=== PATIENT | female | born 1970 | race African-American/Black ===

== ENCOUNTER 2017-03-25 12:36 | Inpatient (IN) | payer OTHER ==
[2017-03-25 13:26] VITALS: BMI 34.9
--- NOTE | 2017-03-25 15:02 | HP ---
CIWA Score - CIWA Score Nausea/Vomitin-No Nausea/No Vomiting Muscle Tremors: 4-Moderate,w/Arms Extend Anxiety: 3 Agitation: 2 Paroxysmal Sweats: 3 Orientation: 0-Oriented Tacttile Disturbances: 2-Mild Itch/Numbness/Burn Auditory Disturbances: 0-None Visual Disturbances: 3-Moderate Sensitivity Headache: 0-None Present CIWA-Ar Total Score: 17 Admission ROS S - HPI Chief Complaint: "I want help. I have to own up to what I am doing." Patient is here to Detox from Alcohol. Allergies/Adverse Reactions: Allergies Allergy/AdvReac Type Severity Reaction Status Date / Time No Known Allergies Allergy Verified 03/25/17 15:01 History of Present Illness: Pt. is a 46 YO female here to Detox from Alcohol. This is patient's first Detox admission to any facility. Exam Limitations: No Limitations - Ebola screening Have you traveled outside of the country in the last 21 days: No Have you had contact with anyone from an Ebola affected area: No Have you been sick,other than usual withdrawal symptoms: No Do you have a fever: No - Review of Systems Constitutional: Chills, Diaphoresis, Fever, Loss of Appetite, Malaise, Changes in sleep EENT: reports: Blurred Vision Respiratory: reports: No Symptoms reported Cardiac: reports: No Symptoms Reported GI: reports: Poor Appetite : reports: No Symptoms Reported Musculoskeletal: reports: No Symptoms Reported Integumentary: reports: No Symptoms Reported Neuro: reports: Numbness (Bilateral Hands.), Tremors (Bilateral Hands.) Endocrine: reports: No Symptoms Reported Hematology: reports: Anemia (Iron-Deficiency type.), Easy Bleeding (Patient was evaluted at [facility] ([facility] approx. 1 week ago for vaginal bleeding. Pt. received blood transfusion at Hospital. Vaginal bleeding stopped completely approx. 4 days ago. Pt. reports history of Uterine Fibroids for which she has had two previous surgeries (02/2017, 03/2017). Pt. reportst that she was instructed by Surgeon to follow-up with Transport Assistant medical provider for further evaluation as soon as possible. Patient denies any current uterine bleeding / spotting.) Psychiatric: reports: Judgement Intact, Mood/Affect Appropiate, Orientated x3, Anxious, Depressed (No previous Treatment.) Other Systems: Reviewed and Negative Patient History - Patient Medical History Hx Anemia: Yes (Iron-Deficiency type, has taken Iron supplement in past.) Hx Asthma: Yes (Uses Albuterol Inhaler PRN.) Hx Chronic Obstructive Pulmonary Disease (COPD): No Hx Cancer: No Hx Cardiac Disorders: No Hx Congestive Heart Failure: No Hx Hypertension: Yes (On med.) Hx Hypercholesterolemia: No Hx Pacemaker: No HX Cerebrovascular Accident: No Hx Seizures: No Hx Dementia: No Hx Diabetes: No Hx Gastrointestinal Disorders: No Hx Liver Disease: No Hx Genitourinary Disorders: No Hx Sexually Transmitted Disorders: No Hx Renal Disease (ESRD): No Hx Thyroid Disease: No Hx Human Immunodeficiency Virus (HIV): No (Last Tested: 05/2016: NEGATIVE.) Hx Hepatitis C: No (Last Tested: 12/2016: NEGATIVE.) Hx Depression: Yes (No previous treatment.) Hx Suicide Attempt: No (PATIENT DENIES CURRENT SI / HI.) Hx Bipolar Disorder: No Hx Schizophrenia: No Other Medical History: History of Uterine Fibroids. - Patient Surgical History Past Surgical History: Yes Hx Neurologic Surgery: No Hx Cataract Extraction: No Hx Cardiac Surgery: No Hx Lung Surgery: No Hx Breast Surgery: No Hx Breast Biopsy: No Hx Abdominal Surgery: Yes (Gastric Bypass (2013).) Hx Appendectomy: No Hx Cholecystectomy: No Hx Genitourinary Surgery: No Hx Section: No Hx Orthopedic Surgery: No Hx Hysterectomy: No Other Surgical History: Uterine Fibroid Removal X 2 (02/2017, 03/2017). Anesthesia Reaction: No - PPD History Previous Implant?: Yes Documented Results: Negative w/o proof Implanted On Prior [facility] Admission?: No PPD to be Administered?: Yes - Reproductive History Patient is a Female of Child Bearing Age (11 -55 yrs old): Yes LMP comment: Difficult to determine due to bleeding caused by Uterine fibroids. Patient : No - Smoking Cessation Smoking history: Never smoked Have you smoked in the past 12 months: No Cigars Per Day: 0 Hx Chewing Tobacco Use: No Initiated information on smoking cessation: No - Substance & Tx. History Hx Alcohol Use: Yes Hx Substance Use: Yes Substance Use Type: Alcohol Hx Substance Use Treatment: No (This is fiurst Detox admission for patient.) - Substances Abused Alcohol Route: Oral Frequency: Daily Amount used: 1 Quart Vodka. Age of first use: 31 Date of Last Use: 03/25/17 Family Disease History - Family Disease History Family Disease History: Diabetes: Father (.) Admission Physical Exam [facility] - Vital Signs Vital Signs: Vital Signs - 24 hr 03/25/17 13:17 Temperature 99.0 F Pulse Rate 114 H Respiratory 20 Rate Blood Pressure 153/98 - Physical General Appearance: Yes: No Apparent Distress, Nourished, Appropriately Dressed , Tremorous HEENTM: Yes: Hearing grossly Normal, Normocephalic, Normal Voice, MAYURI, Pharynx Normal Respiratory: Yes: Chest Non-Tender, Lungs Clear, No Respiratory Distress, No Accessory Muscle Use Neck: Yes: No masses,lesions,Nodules, Supple, Trachea in good position Breast: Yes: Breast Exam Deferred Cardiology: Yes: Regular Rhythm, Regular Rate, S1, S2, Tachycardia Abdominal: Yes: Normal Bowel Sounds, Non Tender, Soft, Protuberent Genitourinary: Yes: Within Normal Limits Back: Yes: Normal Inspection Musculoskeletal: Yes: full range of Motion, Gait Steady Extremities: Yes: Normal Range of Motion, Non-Tender, Tremors Neurological: Yes: Fully Oriented, Alert, Normal Mood/Affect, Normal Response Integumentary: Yes: Normal Color, Dry, Warm Lymphatic: Yes: Within Normal Limits - Diagnostic (1) Alcohol dependence with uncomplicated withdrawal Current Visit: Yes Status: Acute (2) Hypertension Current Visit: Yes Status: Acute Qualifiers: Hypertension type: essential hypertension Qualified Code(s): I10 - Essential (primary) hypertension (3) History of uterine fibroid Current Visit: Yes Status: Chronic (4) Asthma Current Visit: Yes Status: Chronic Qualifiers: Asthma severity: mild Asthma persistence: intermittent Asthma complication type: uncomplicated Qualified Code(s): J45.20 - Mild intermittent asthma, uncomplicated (5) History of gynecologic surgery Current Visit: Yes Status: Chronic Comment: Uterine Fibroid Removal X 2 (2016, 03/2017). (6) History of iron deficiency anemia Current Visit: Yes Status: Chronic Cleared for Admission [facility] - Detox or Rehab [facility] Level of Care: Medically Managed Detox Regimen/Protocol: Librium [facility] Breath Alcohol Content Breath Alcohol Content: 0.303 Urine Pregancy Test - Result Urine Test Results: Negative- NO Line Present Urine Drug Screen - Results Drug Screen Negative: Yes
[2017-03-25] MEDS ORDERED: hydrOXYzine PAMOATE 50 MG CAPSULE (FP) PO PRN (15:52)
[2017-03-25] MEDS ORDERED: guaiFENesin/D-METHORPHAN HB 10 ML UNIT-DOSE CUPS PO PRN (15:52)
[2017-03-25] MEDS ORDERED: P-EPHED 60MG/TRIPROLIDI 2.5MG TABLET PO PRN (15:52)
[2017-03-25] MEDS ORDERED: MAG HYDROX/AL HYDROX/SIMETH 30 ML UNIT-DOSE CUP PO PRN (15:52)
[2017-03-25] MEDS ORDERED: IBUPROFEN 400 MG TABLET (FP) PO PRN (15:52)
[2017-03-25] MEDS ORDERED: ACETAMINOPHEN 325 MG TABLET (FP) PO PRN (15:52)
[2017-03-25] MEDS ORDERED: chlordiazePOXIDE HCL 25 MG CAPSULE PO ONE (15:52)
[2017-03-25] MEDS ORDERED: MENTHOL/PHENOL 1 EACH UD MM PRN (15:52)
[2017-03-25] MEDS ORDERED: MAGNESIUM CITRATE 300 ML BOTTLE PO PRN (15:52)
[2017-03-25] MEDS ORDERED: LOPERAMIDE HCL 2 MG CAPSULE PO PRN (15:52)
[2017-03-25] MEDS ORDERED: MAGNESIUM HYDROX 2400MG/30ML ORAL SUSPENSION 30 ML CUP PO PRN (15:52)
[2017-03-25] MEDS ORDERED: ALBUTEROL SO4 18 GM HFA INHALER IH PRN (15:58)
[2017-03-25] MEDS: chlordiazePOXIDE HCL 25 MG CAPSULE PO SCH ×2 (17:52→22:53)
[2017-03-25] MEDS: LOSARTAN 50MG/HCTZ 12.5MG 1 TAB (FP) PO SCH (19:09)
[2017-03-25 22:49] LABS: URINE APPEARANCE CLOUDY; URINE BILIRUBIN NEGATIVE (NEGATIVE); URINE BLOOD 1+ (NEGATIVE); URINE COLOR AMBER; URINE GLUCOSE (UA) NEGATIVE (NEGATIVE); URINE KETONE NEGATIVE (NEGATIVE); URINE NITRITE NEGATIVE (NEGATIVE); URINE PROTEIN 2+ (NEGATIVE); URINE UROBILINOGEN NEGATIVE mg/dL (0.2-1.0)
[2017-03-25 22:51] LABS: URINE BACTERIA FEW /hpf (NONE SEEN); URINE HYALINE CAST 9 /lpf; URINE MUCUS MODERATE; URINE RBC 6; URINE WBC 72; YEAST RARE
[2017-03-25] MEDS: THIAMINE HCL 100 MG TABLET (FP) PO SCH (22:52)
[2017-03-26] MEDS: chlordiazePOXIDE HCL 25 MG CAPSULE PO SCH ×4 (06:30→22:37)
--- NOTE | 2017-03-26 07:44 | CONSULT ---
[facility] Psychiatric Consult - Data Date of interview: 03/26/17 Admission source: [facility] Identifying data: This is 46 years old female with no psychiatric hospitalization history intoxicated with : A;cphp; Substance Abuse History: - Smoking Cessation. Smoking history: Never smoked. Have you smoked in the past 12 months: No. Cigars Per Day: 0. Hx Chewing Tobacco Use: No. Initiated information on smoking cessation: No. - Substance & Tx. History. Hx Alcohol Use: Yes. Hx Substance Use: Yes. Substance Use Type : Alcohol. Hx Substance Use Treatment: No (This is fiurst Detox admission for patient.). - Substances Abused. Alcohol. Route: Oral. Frequency: Daily. Amount used: 1 Quart Vodka. Age of first use: 31. Date of Last Use: 03/25/17 Medical History: HTN, Asthma, S/P fibroid surdery history, Anemia history, Psychiatric History: Reports history of depression, reports no mediations taking prior to admission, denies suicidal history Physical/Sexual Abuse/Trauma History: Denies Additional Comment: Observation\. Detox Protocol Unit Care Mental Status Exam - Mental Status Exam Alert and Oriented to: Person Cognitive Function: Fair Patient Appearance: Unkempt Mood: Sad Affect: Flat Patient Behavior: Sedated Speech Pattern: Delayed Voice Loudness: Mildly Soft/Quiet Thought Process: Circumstantial Thought Disorder: Being Controlled Hallucinations: Denies Suicidal Ideation: Denies Homicidal Ideation: Denies Insight/Judgement: Fair Sleep: Difficulty falling asleep Appetite: Fair Muscle strength/Tone: Mild Hypotonicity Gait/Station: Shuffling Additional Comments: Observation\. 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 Detox Protocol Unit Care
[2017-03-26 10:44] LABS: URINE LEUK ESTERASE TRACE (NEGATIVE)
[2017-03-26] MEDS: PRENATAL VITAMINS W/ FOLIC ACID TABLET (FP) PO SCH (10:46)
[2017-03-26] MEDS: LOSARTAN 50MG/HCTZ 12.5MG 1 TAB (FP) PO SCH (10:46)
--- NOTE | 2017-03-26 11:39 | EKG ---
Test Reason : Blood Pressure : / mmHG Vent. Rate : 105 BPM Atrial Rate : 105 BPM P-R Int : 150 ms QRS Dur : 086 ms QT Int : 362 ms P-R-T Axes : 049 -10 079 degrees QTc Int : 478 ms SINUS TACHYCARDIA T WAVE ABNORMALITY, CONSIDER LATERAL ISCHEMIA ABNORMAL ECG NO PREVIOUS ECGS AVAILABLE Confirmed by SHERIN CUADRA MD ([id number]) on 03/26/2017 11:39:02 AM Referred By: Confirmed By:SHERIN CUADRA MD
--- NOTE | 2017-03-26 11:57 | PN ---
S CIWA - CIWA Score Nausea/Vomitin-No Nausea/No Vomiting Muscle Tremors: 4-Moderate,w/Arms Extend Anxiety: 3 Agitation: 3 Paroxysmal Sweats: 3 Orientation: 0-Oriented Tacttile Disturbances: 0-None Auditory Disturbances: 0-None Visual Disturbances: 0-None Headache: 0-None Present CIWA-Ar Total Score: 13 S Progress Note (SOAP) Subjective: sweats agitation interrupted sleep shakes Objective: 03/26/17 11:56 Vital Signs Temperature 98.2 F 03/26/17 10:10 Pulse Rate 105 H 03/26/17 10:10 Respiratory Rate 16 03/26/17 10:10 Blood Pressure 140/90 03/26/17 10:10 O2 Sat by Pulse Oximetry (%) Laboratory Tests 03/25/17 21:30 Urine Color Sudha Urine Appearance Cloudy Urine pH 5.0 Ur Specific [place] 1.023 Urine Protein 2+ H Urine Glucose (UA) Negative Urine Ketones Negative Urine Blood 1+ H Urine Nitrite Negative Urine Bilirubin Negative Urine Urobilinogen Negative Ur Leukocyte Esterase Trace H Urine WBC (Auto) 72 Urine RBC (Auto) 6 Urine RBC No Result Required. Ur Epithelial Cells Rare Urine Bacteria Few Hyaline Casts 9 Urine Mucus Moderate Urine Yeast Rare rest of labs pending repeat u/a aaox3 ambulating no acute distress Assessment: 03/26/17 11:57 withdrawal sx Plan: continue detox increase fluids
--- NOTE | 2017-03-26 12:14 | EKG ---
Test Reason : Blood Pressure : / mmHG Vent. Rate : 102 BPM Atrial Rate : 102 BPM P-R Int : 146 ms QRS Dur : 090 ms QT Int : 372 ms P-R-T Axes : 052 -13 119 degrees QTc Int : 484 ms SINUS TACHYCARDIA NONSPECIFIC T WAVE ABNORMALITY ABNORMAL ECG WHEN COMPARED WITH ECG OF 25-MAR-2017 17:28, NO SIGNIFICANT CHANGE WAS FOUND Confirmed by SHERIN CUADRA MD ([id number]) on 03/26/2017 12:13:58 PM Referred By: Confirmed By:SHERIN CUADRA MD
[2017-03-26 13:22] LABS: MCH 23.3 pg (25.7-33.7); MCHC 32.1 g/dl (32.0-36.0); MEAN CELL VOLUME 72.6 fl (80-96); MEAN PLT VOLUME 8.8 fl (7.5-11.1); PLATELET COUNT 326 K/MM3 (134-434); RDW 31.3 % (11.6-15.6); WHITE BLOOD COUNT 4.5 K/mm3 (4.0-10.0)
[2017-03-26 13:39] LABS: ALBUMIN 3.7 g/dl (3.4-5.0); ANION GAP 9 (8-16); CALCIUM 8.7 mg/dL (8.5-10.1); CO2 31 mmol/L (21-32); CREATININE 0.8 mg/dL (0.55-1.02); GLUCOSE,RANDOM 72 mg/dL (74-106); SGOT/AST 18 U/L (15-37); SGPT/ALT 24 U/L (12-78)
[2017-03-26 13:40] LABS: ALK PHOS 72 U/L (45-117); BILIRUBIN,TOTAL 0.9 mg/dL (0.2-1.0); TOT PROT 7.7 g/dl (6.4-8.2)
[2017-03-26 14:01] LABS: SICKLE CELL SCREEN NEGATIVE (NEGATIVE)
[2017-03-26] MEDS: chlordiazePOXIDE HCL 25 MG CAPSULE PO PRN ×2 (15:38→20:15)
[2017-03-26] MEDS: cloNIDine HCL 0.1 MG TABLET PO PRN (20:15)
[2017-03-26] MEDS: THIAMINE HCL 100 MG TABLET (FP) PO SCH (22:37)
[2017-03-27] MEDS: chlordiazePOXIDE HCL 25 MG CAPSULE PO SCH ×2 (06:01→10:55)
[2017-03-27 09:07] LABS: HIV 1 & 2 AB NEGATIVE; HIV 1 AGp24 NEGATIVE
[2017-03-27] MEDS: LOSARTAN 50MG/HCTZ 12.5MG 1 TAB (FP) PO SCH (10:54)
[2017-03-27] MEDS: PRENATAL VITAMINS W/ FOLIC ACID TABLET (FP) PO SCH (10:54)
[2017-03-27] MEDS: cloNIDine HCL 0.1 MG TABLET PO PRN (10:56)
--- NOTE | 2017-03-27 12:36 | EKG ---
Test Reason : Blood Pressure : / mmHG Vent. Rate : 095 BPM Atrial Rate : 095 BPM P-R Int : 146 ms QRS Dur : 090 ms QT Int : 376 ms P-R-T Axes : 060 -12 118 degrees QTc Int : 472 ms NORMAL SINUS RHYTHM T WAVE ABNORMALITY, CONSIDER ANTERIOR ISCHEMIA PROLONGED QT ABNORMAL ECG WHEN COMPARED WITH ECG OF 25-MAR-2017 22:57, NO SIGNIFICANT CHANGE WAS FOUND Confirmed by ANA JEFFERSON, OREN ([id number]) on 03/27/2017 12:36:15 PM Referred By: Confirmed By:OREN PEREZ MD
[2017-03-27 13:52] VITALS: BP 133/74; PULSE 100; TEMP 97.1
--- NOTE | 2017-03-27 13:52 | PN ---
S CIWA - CIWA Score Nausea/Vomitin Muscle Tremors: 3 Anxiety: 3 Agitation: 2 Paroxysmal Sweats: 1-Minimal Palms Moist Orientation: 0-Oriented Tacttile Disturbances: 1-Very Mild Itch/Numbness Auditory Disturbances: 1-Very Mild Visual Disturbances: 0-None Headache: 2-Mild CIWA-Ar Total Score: 16 BHS Progress Note (SOAP) Subjective: ALERT,IRRITABLE,ANXIOUS,INTERRUPTED SLEEP,TREMOR Objective: 03/27/17 13:51 Vital Signs Temperature 97.7 F 03/27/17 10:50 Pulse Rate 111 H 03/27/17 10:50 Respiratory Rate 18 03/27/17 10:50 Blood Pressure 139/94 03/27/17 10:50 O2 Sat by Pulse Oximetry (%) Laboratory Last Values WBC 4.5 K/mm3 (4.0-10.0) 03/26/17 09:50 RBC 4.58 M/mm3 (3.60-5.2) 03/26/17 09:50 Hgb 10.7 GM/dL (10.7-15.3) 03/26/17 09:50 Hct 33.2 % (32.4-45.2) 03/26/17 09:50 MCV 72.6 fl (80-96) L 03/26/17 09:50 MCH 23.3 pg (25.7-33.7) L 03/26/17 09:50 MCHC 32.1 g/dl (32.0-36.0) 03/26/17 09:50 RDW 31.3 % (11.6-15.6) H 03/26/17 09:50 Plt Count 326 K/MM3 (134-434) 03/26/17 09:50 MPV 8.8 fl (7.5-11.1) 03/26/17 09:50 Sickle Cell Screen Negative (NEGATIVE) 03/26/17 09:50 Sodium 139 mmol/L (136-145) 03/26/17 09:50 Potassium 3.6 mmol/L (3.5-5.1) 03/26/17 09:50 Chloride 99 mmol/L (98-107) 03/26/17 09:50 Carbon Dioxide 31 mmol/L (21-32) 03/26/17 09:50 Anion Gap 9 (8-16) 03/26/17 09:50 BUN 11 mg/dL (7-18) 03/26/17 09:50 Creatinine 0.8 mg/dL (0.55-1.02) 03/26/17 09:50 Creat Clearance w eGFR > 60 (>60) 03/26/17 09:50 Random Glucose 72 mg/dL (74-106) L 03/26/17 09:50 Calcium 8.7 mg/dL (8.5-10.1) 03/26/17 09:50 Total Bilirubin 0.9 mg/dL (0.2-1.0) 03/26/17 09:50 AST 18 U/L (15-37) 03/26/17 09:50 ALT 24 U/L (12-78) 03/26/17 09:50 Alkaline Phosphatase 72 U/L (45-117) 03/26/17 09:50 Total Protein 7.7 g/dl (6.4-8.2) 03/26/17 09:50 Albumin 3.7 g/dl (3.4-5.0) 03/26/17 09:50 Urine Color Sudha 03/25/17 21:30 Urine Appearance Cloudy 03/25/17 21:30 Urine pH 5.0 (5.0-8.0) 03/25/17 21:30 Ur Specific [place] 1.023 (1.001-1.035) 03/25/17 21:30 Urine Protein 2+ (NEGATIVE) H 03/25/17 21:30 Urine Glucose (UA) Negative (NEGATIVE) 03/25/17 21:30 Urine Ketones Negative (NEGATIVE) 03/25/17 21:30 Urine Blood 1+ (NEGATIVE) H 03/25/17 21:30 Urine Nitrite Negative (NEGATIVE) 03/25/17 21:30 Urine Bilirubin Negative (NEGATIVE) 03/25/17 21:30 Urine Urobilinogen Negative mg/dL (0.2-1.0) 03/25/17 21:30 Ur Leukocyte Esterase Trace (NEGATIVE) H 03/25/17 21:30 Urine WBC (Auto) 72 03/25/17 21:30 Urine RBC (Auto) 6 03/25/17 21:30 Urine RBC No Result Required. 03/25/17 21:30 Ur Epithelial Cells Rare /hpf (FEW) 03/25/17 21:30 Urine Bacteria Few /hpf (NONE SEEN) 03/25/17 21:30 Hyaline Casts 9 /lpf 03/25/17 21:30 Urine Mucus Moderate 03/25/17 21:30 Urine Yeast Rare 03/25/17 21:30 RPR Titer Nonreactive (NONREACTIVE) 03/26/17 09:50 HIV 1&2 Antibody Screen Negative 03/26/17 09:50 HIV P24 Antigen Negative 03/26/17 09:50 Assessment: 03/27/17 13:51 WITHDRAWAL SYMPTOM Plan: CONTINUE DETOX
[2017-03-27] MEDS ORDERED: FERROUS SO4 325 MG TABLET (FP) PO SCH (14:00)
[2017-03-27] MEDS ORDERED: chlordiazePOXIDE 5 MG CAPSULE PO SCH (17:00)
--- NOTE | 2017-03-27 19:20 | DS ---
[facility] Detox Discharge Summary Admission Date: 03/25/17 Discharge Date: 03/27/17 - History Present History: Alcohol Dependence Additional Comments: PATIENT REFUSES TO WAIT FACE TO FACE WITH THE PROVIDER [facility] + VENTOLIN E PRESCRIPTIONS SENT TO PREFERRED PHARMACY [facility] OUT PATIENT Pertinent Past History: ASTHMA HYPERTENSION - Physical Exam Results Vital Signs: Vital Signs Temperature 97.1 F L 03/27/17 13:52 Pulse Rate 100 H 03/27/17 13:52 Respiratory Rate 18 03/27/17 13:52 Blood Pressure 133/74 03/27/17 13:52 O2 Sat by Pulse Oximetry (%) Pertinent Admission Physical Exam Findings: WITHDRAWAL SX Laboratory Last Values WBC 4.5 K/mm3 (4.0-10.0) 03/26/17 09:50 RBC 4.58 M/mm3 (3.60-5.2) 03/26/17 09:50 Hgb 10.7 GM/dL (10.7-15.3) 03/26/17 09:50 Hct 33.2 % (32.4-45.2) 03/26/17 09:50 MCV 72.6 fl (80-96) L 03/26/17 09:50 MCH 23.3 pg (25.7-33.7) L 03/26/17 09:50 MCHC 32.1 g/dl (32.0-36.0) 03/26/17 09:50 RDW 31.3 % (11.6-15.6) H 03/26/17 09:50 Plt Count 326 K/MM3 (134-434) 03/26/17 09:50 MPV 8.8 fl (7.5-11.1) 03/26/17 09:50 Sickle Cell Screen Negative (NEGATIVE) 03/26/17 09:50 Sodium 139 mmol/L (136-145) 03/26/17 09:50 Potassium 3.6 mmol/L (3.5-5.1) 03/26/17 09:50 Chloride 99 mmol/L (98-107) 03/26/17 09:50 Carbon Dioxide 31 mmol/L (21-32) 03/26/17 09:50 Anion Gap 9 (8-16) 03/26/17 09:50 BUN 11 mg/dL (7-18) 03/26/17 09:50 Creatinine 0.8 mg/dL (0.55-1.02) 03/26/17 09:50 Creat Clearance w eGFR > 60 (>60) 03/26/17 09:50 Random Glucose 72 mg/dL (74-106) L 03/26/17 09:50 Calcium 8.7 mg/dL (8.5-10.1) 03/26/17 09:50 Total Bilirubin 0.9 mg/dL (0.2-1.0) 03/26/17 09:50 AST 18 U/L (15-37) 03/26/17 09:50 ALT 24 U/L (12-78) 03/26/17 09:50 Alkaline Phosphatase 72 U/L (45-117) 03/26/17 09:50 Total Protein 7.7 g/dl (6.4-8.2) 03/26/17 09:50 Albumin 3.7 g/dl (3.4-5.0) 03/26/17 09:50 Urine Color Sudha 03/25/17 21:30 Urine Appearance Cloudy 03/25/17 21:30 Urine pH 5.0 (5.0-8.0) 03/25/17 21:30 Ur Specific [place] 1.023 (1.001-1.035) 03/25/17 21:30 Urine Protein 2+ (NEGATIVE) H 03/25/17 21:30 Urine Glucose (UA) Negative (NEGATIVE) 03/25/17 21:30 Urine Ketones Negative (NEGATIVE) 03/25/17 21:30 Urine Blood 1+ (NEGATIVE) H 03/25/17 21:30 Urine Nitrite Negative (NEGATIVE) 03/25/17 21:30 Urine Bilirubin Negative (NEGATIVE) 03/25/17 21:30 Urine Urobilinogen Negative mg/dL (0.2-1.0) 03/25/17 21:30 Ur Leukocyte Esterase Trace (NEGATIVE) H 03/25/17 21:30 Urine WBC (Auto) 72 03/25/17 21:30 Urine RBC (Auto) 6 03/25/17 21:30 Urine RBC No Result Required. 03/25/17 21:30 Ur Epithelial Cells Rare /hpf (FEW) 03/25/17 21:30 Urine Bacteria Few /hpf (NONE SEEN) 03/25/17 21:30 Hyaline Casts 9 /lpf 03/25/17 21:30 Urine Mucus Moderate 03/25/17 21:30 Urine Yeast Rare 03/25/17 21:30 RPR Titer Nonreactive (NONREACTIVE) 03/26/17 09:50 HIV 1&2 Antibody Screen Negative 03/26/17 09:50 HIV P24 Antigen Negative 03/26/17 09:50 LAB NOTED - Treatment Hospital Course: Detox Protocol Followed, Responded well - Medication Discharge Medications: Ambulatory Orders Albuterol Sulfate Inhaler - [Ventolin HFA Inhaler -] 2 puff IH Q6H PRN #1 inhaler 03/27/17 Losartan/Hydrochlorothiazide [Losartan-Hctz 100-25 mg Tab] 1 mg PO DAILY 14 Days #14 tablet 03/27/17 - Diagnosis (1) Alcohol dependence with uncomplicated withdrawal Status: Acute (2) Asthma Status: Chronic Qualifiers: Asthma severity: mild Asthma persistence: intermittent Asthma complication type: uncomplicated Qualified Code(s): J45.20 - Mild intermittent asthma, uncomplicated (3) Hypertension Status: Chronic Qualifiers: Hypertension type: essential hypertension Qualified Code(s): I10 - Essential (primary) hypertension - AMA Did Patient Leave Against Medical Advice: Yes
[2017-03-28] MEDS ORDERED: chlordiazePOXIDE HCL 10 MG CAPSULE PO SCH (17:00)
== END 2017-03-27 18:35 | disposition left against medical advice (07) | DRG 770 ==
LOC: YASAS 12:36 → Y6N 16:41
PROVIDERS: ADMIT Internal Medicine; ATTEND Internal Medicine
PROC: HZ2ZZZZ Detoxification Services for Substance Abuse Treatment (ICD-10-PCS; principal; 2017-03-25)
DX: F10.230 Alcohol dependence with withdrawal, uncomplicated (principal); F10.24 Alcohol dependence with alcohol-induced mood disorder; J45.20 Mild intermittent asthma, uncomplicated; I10 Essential (primary) hypertension; D50.9 Iron deficiency anemia, unspecified; R00.0 Tachycardia, unspecified; Z98.84 Bariatric surgery status; Z98.890 Other specified postprocedural states
CPT/HCPCS: 36415; 71020-TC; 80053; 81003; 81015; 85027; 85660; 86593; 87389; 93005; 93010